=== PATIENT | female | born 1980 ===

== ENCOUNTER 2024-09-22 20:27 | Observation (INO) | payer OTHER ==
--- NOTE | 2024-09-22 20:35 | ED ---
Chest Pain HPI - General Chief Complaint: Chest Pain Stated Complaint: Chest pain,Sob Time Seen by Provider: 09/22/24 20:34 Source: patient, RN notes reviewed, old records reviewed Mode of arrival: ambulatory Limitations: no limitations - History of Present Illness Initial Comments: This is a 44-year-old female to the ER for evaluation of chest pain chest pain shortness of breath patient is having significant retching with nausea and vomiting here in the ER for persistent chest pain left-sided chest pain severe weakness patient feels pale diaphoretic and feverish. MD Complaint: chest pain Onset: during rest, during exertion Pain Location: substernal, left chest Pain Radiation: none Severity: mild Severity scale (1-10): 2 Consistency: constant Improves With: nothing Worsens With: nothing Anginal Symptoms: dyspnea, sense of impending doom Other Symptoms: palpitations Treatments Prior to Arrival: none - Related Data Home Medications Medication Instructions Recorded Confirmed Escitalopram [Lexapro] 10 mg PO HS 09/29/23 09/23/24 Amoxicillin (Unknown Dose) 1 tab PO BID 09/23/24 09/23/24 Previous Rx's Medication Instructions Recorded Pantoprazole [Protonix] 40 mg PO DAILY 30 Days #30 tab 09/24/24 Allergies Allergy/AdvReac Type Severity Reaction Status Date / Time No Known Allergies Allergy Verified 09/23/24 07:58 Review of Systems ROS Statement: Those systems with pertinent positive or pertinent negative responses have been documented in the HPI. ROS Other: All systems not noted in ROS Statement are negative. EKG Findings - EKG Comments: EKG Findings:: EKG sinus 64 VT 135 QRS 106 QTc 469 - EKG Results: EKG: interpreted by ALEX Past Medical History Past Medical History: No Reported History History of Any Multi-Drug Resistant Organisms: None Reported Past Surgical History: Section Additional Past Surgical History / Comment(s): EGD last week Past Anesthesia/Blood Transfusion Reactions: No Reported Reaction Additional Past Anesthesia/Blood Transfusion Reaction / Comment(s): No prior blood transfusion. Past Psychological History: No Psychological Hx Reported Smoking Status: Never smoker Past Alcohol Use History: None Reported Past Drug Use History: Marijuana General Exam Limitations: no limitations General appearance: alert, in no apparent distress Head exam: Present: atraumatic, normocephalic, normal inspection Eye exam: Present: normal appearance, PERRL, EOMI. Absent: scleral icterus, conjunctival injection, periorbital swelling ENT exam: Present: normal exam, mucous membranes moist Neck exam: Present: normal inspection. Absent: tenderness, meningismus, lymphadenopathy Respiratory exam: Present: normal lung sounds bilaterally. Absent: respiratory distress, wheezes, rales, rhonchi, stridor Cardiovascular Exam: Present: regular rate, normal rhythm, normal heart sounds. Absent: systolic murmur, diastolic murmur, rubs, gallop, clicks GI/Abdominal exam: Present: soft, normal bowel sounds. Absent: distended, tenderness, guarding, rebound, rigid Extremities exam: Present: normal inspection, full ROM, normal capillary refill. Absent: tenderness, pedal edema, joint swelling, calf tenderness Back exam: Present: normal inspection Neurological exam: Present: alert, oriented X3, CN II-XII intact Psychiatric exam: Present: normal affect, normal mood Skin exam: Present: warm, dry, intact, normal color. Absent: rash Course Vital Signs 09/22/24 09/22/24 09/23/24 20:28 22:44 00:43 Temperature 97.9 F 97.9 F Pulse Rate 63 75 Pulse Rate [ 63 Right Left Lateral Pulse Oximetery] Respiratory 20 17 Rate Blood Pressure 156/84 141/79 Blood Pressure 142/81 [Right Arm] O2 Sat by Pulse 100 97 97 Oximetry 09/23/24 01:25 Temperature Pulse Rate 75 Pulse Rate [ Right Left Lateral Pulse Oximetery] Respiratory 9 L Rate Blood Pressure 156/88 Blood Pressure [Right Arm] O2 Sat by Pulse 97 Oximetry - Reevaluation(s) Reevaluation #1: 09/22/24 20:35 Medical records reviewed Reevaluation #2: 09/22/24 22:35 Patient's symptoms are mildly improved here in the ER Reevaluation #3: 09/22/24 22:35 Patient informed of results questions answered still with chest pain Reevaluation #4: Was pt. sent in by a medical professional or institution (, PA, PROTOTYPE SEWER, urgent care, hospital, or halfway...) When possible be specific @ -no Did you speak to anyone other than the patient for history (EMS, parent, family, police, friend...)? What history was obtained from this source @ -no Did you review nursing and triage notes (agree or disagree)? Why? @ -agree Are old charts reviewed (outside hosp., previous admission, EMS record, old EKG, old radiological studies, urgent care reports/EKG's, halfway records)? Report findings @ -yes Differential Diagnosis (chest pain, altered mental status, abdominal pain women, abdominal pain men, vaginal bleeding, weakness, fever, dyspnea, syncope, headache, dizziness, GI bleed, back pain, seizure, CVA, palpatations, mental health, musculoskeletal)? @ -prior EKG interpreted by me (3pts min.). @ -yes X-rays interpreted by me (1pt min.). @ -yes negative for acute disease CT interpreted by me (1pt min.). @ -no U/S interpreted by me (1pt. min.). @ -no What testing was considered but not performed or refused? (CT, X-rays, U/S, labs)? Why? @ -none What meds were considered but not given or refused? Why? @ -none Did you discuss the management of the patient with other professionals (professionals i.e. , PA, PROTOTYPE SEWER, lab, RT, psych nurse, home health care social worker, environmental restoration planner, teacher, chief sales officer, case management rn)? Give summary @ -no Was smoking cessation discussed for >3mins.? @ -no Was critical care preformed (if so, how long)? @ -no Were there social determinants of health that impacted care today? How? (Homelessness, low income, unemployed, alcoholism, drug addiction, transportation, low edu. Level, literacy, decrease access to med. care, [facility], rehab)? @ -none Was there de-escalation of care discussed even if they declined (Discuss DNR or withdrawal of care, Hospice)? DNR status @ -no What co-morbidities impacted this encounter? (DM, HTN, Smoking, COPD, CAD, Cancer, CVA, ARF, Chemo, Hep., AIDS, mental health diagnosis, sleep apnea, morbid obesity)? @ -none Was patient admitted / discharged? Hospital course, mention meds given and route, prescriptions, significant lab abnormalities, going to OR and other pertinent info. @ - 44 female with chest pain nausea vomiting diaphoresis and fever symptoms. Patient has no acute cause of symptoms found here in the ER patient admitted for trending of troponin with chest pain, symptomatic therapy with nausea vomiting Admitted Undiagnosed new problem with uncertain prognosis? @ -no Drug Therapy requiring intensive monitoring for toxicity (Heparin, Nitro, Insulin, Cardizem)? @ -no Were any procedures done? @ -no Diagnosis/symptom? @ -Chest pain Acute, or Chronic, or Acute on Chronic? @ -Acute Uncomplicated (without systemic symptoms) or Complicated (systemic symptoms)? @ -Complicated Side effects of treatment? @ -no Exacerbation, Progression, or Severe Exacerbation? @ -exacerbation Poses a threat to life or bodily function? How? (Chest pain, [place], [place], pneumonia, PE, COPD, DKA, ARF, appy, cholecystitis, CVA, Diverticulitis, Homicidal, Suicidal, threat to staff... and all critical care pts) @ -yes with acute chest pain Reevaluation #5: Differential Chest Pain: Stable Angina, Unstable Angina, STEMI, NSTEMI Aortic Dissection, Pneumothorax, Musculoskeletal, Esophageal Spasm GERD, Cholecystitis, Pancreatitis, Zoster, this is not meant to be an all-inclusive list. - Consultations Consultation #1: Spoke with syeda who agrees to admit this patient Chest Pain MDM - MDM 44 female with chest pain nausea vomiting diaphoresis and fever symptoms. Patient has no acute cause of symptoms found here in the ER patient admitted for trending of troponin with chest pain, symptomatic therapy with nausea vomiting Disposition Clinical Impression: Nausea and vomiting, Chest pain, Weakness Disposition: ADMITTED IP TO THIS HOSP Condition: Stable Is patient prescribed a controlled substance at d/c from ED?: No Time of Disposition: 22:30
[2024-09-22 20:53] LABS: Basophils # (A) 0.06 10*3/uL (0.00-0.10); Basophils % (A) 0.3 %; Eosinophils # (A) 0.01 10*3/uL (0.04-0.35); Eosinophils % (A) 0.1 %; HCT 38.6 % (37.2-46.3); HGB 13.3 g/dL (12.0-15.0); Lymphocytes # (A) 1.29 10*3/uL (0.90-5.00); Lymphocytes % (A) 6.7 %; MCH 30.3 pg (27.0-32.0); MCHC 34.5 g/dL (32.0-37.0); MCV 87.9 fL (80.0-97.0); Monocytes # (A) 0.85 10*3/uL (0.20-1.00); Monocytes % (A) 4.4 %; Neutrophils # (A) 16.88 10*3/uL (1.80-7.70); Neutrophils % (A) 88.0 %; Platelet Count 323 10*3/uL (140-440); RBC 4.39 10*6/uL (4.10-5.20); RDW 13.7 % (11.5-14.5); WBC 19.19 10*3/uL (4.50-10.00)
[2024-09-22 21:11] LABS: AST 35 U/L (14-36); African American GFR (CKD) >90 (>60 ml/min/1.73 sqM); Albumin 5.3 g/dL (3.5-5.0); Alkaline Phosphatase 60 U/L (38-126); Anion Gap 19 mmol/L; Blood Urea Nitrogen 12 mg/dL (7-17); Calcium 10.2 mg/dL (8.4-10.2); Carbon Dioxide 17 mmol/L (22-30); Chloride 105 mmol/L (98-107); Glucose 168 mg/dL (74-99); Lipase 31 U/L (23-300); Magnesium 1.8 mg/dL (1.6-2.3); Non-African American GFR(CKD) >90 (>60 ml/min/1.73 sqM); Potassium 4.0 mmol/L (3.5-5.1); Sodium 141 mmol/L (137-145); Total Protein 8.1 g/dL (6.3-8.2)
[2024-09-22 21:15] LABS: INR 1.0 (<1.2); Prothrombin Time 10.7 sec (10.0-12.5)
[2024-09-22 21:18] LABS: NT-Pro-B-Type Natriuretic Pept 135 pg/mL; Partial Thromboplastin Time 18.4 sec (22.0-30.0)
[2024-09-22] MEDS: ONDANSETRON 4 MG/2 ML VIAL IVP STA (21:22)
[2024-09-22] MEDS: LORazepam 1 MG/0.5 ML VIAL IV STA (21:25)
[2024-09-22] MEDS: PANTOPRAZOLE 40 MG/10 ML VIAL IVP STA (21:25)
[2024-09-22] MEDS: MORPHINE SULFATE 4 MG/ML SYRINGE IVP STA (21:27)
[2024-09-22 21:33] LABS: ALT 31 U/L (4-34)
--- NOTE | 2024-09-22 21:44 | XR ---
EXAMINATION TYPE: XR chest 2V DATE OF EXAM: 09/22/2024 9:00 PM COMPARISON: None. CLINICAL INDICATION: Female, 44 years old with history of Chest Pain, TECHNIQUE: XR chest 2V view(s) obtained. FINDINGS: The heart size is normal. The pulmonary vasculature is normal. The lungs are clear. IMPRESSION: 1. No acute pulmonary process. [facility], Workstation: [facility], 09/22/2024 9:41 PM
[2024-09-22 21:52] LABS: VBG HCO3 21.0 mmol/L (24-28); VBG PCO2 28.0 mmHg (37-51); VBG PH 7.49 (7.31-7.41)
[2024-09-22] MEDS: SODIUM CHLORIDE 0.9% 1,000 ML IV SCH (21:56)
[2024-09-22] MEDS ORDERED: KETOROLAC 15 MG/ML 1 ML VIAL IVP PRN (22:34)
[2024-09-22] MEDS ORDERED: NALOXONE 0.4 MG/ML 1 ML VIAL IV PRN (22:34)
[2024-09-22] MEDS: KETOROLAC 15 MG/ML 1 ML VIAL IVP STA (22:56)
[2024-09-22 23:25] LABS: Bilirubin,Urine Negative (Negative); Blood,Urine Small (Negative); Color,Urine Light Yellow; Glucose,Urine (UA) 1+ (Negative); Leukocyte Esterase,Urine Negative (Negative); Mucus,Urine Rare /hpf; Nitrite,Urine Negative (Negative); PH, Urine 8.5 (5.0-8.0); Protein,Urine Trace (Negative); RBC,Urine 56 /hpf (0-5); Specific Gravity,Urine 1.020 (1.001-1.035); Squamous Epithelial Cell,Urine 4 /hpf (0-4); Urobilinogen,Urine <2.0 mg/dL (<2.0); WBC,Urine 4 /hpf (0-5)
[2024-09-22 23:50] LABS: Ketones,Urine 4+ (Negative)
--- NOTE | 2024-09-23 00:44 | P.HPIM ---
History of Present Illness H&P Date: 09/23/24 Patient is a 44-year-old female with a PMH of peptic ulcer status post perforation comes into the ED today for nausea vomiting and substernal chest pain that started today in the afternoon. Patient stated that she went out for lunch and she had tacos, and 1 hour later she noticed the symptoms of her intractable nausea and vomiting, diarrhea, and chest pain. Chest pain described as substernal nonreproducible dull pain. Denied radiation to the jaw, left shoulder, left arm or to the back. Patient stated having multiple nonbloody emesis during the day, and she was unable to tolerate food or drinks. She also stated having 2 bowel movements described as watery nonbloody. Denied sick contact. Her WBC 19.19, troponin is negative. Patient denied headache, fever, shortness of breath, muscle weakness, fever, chills, numbness or tingling. Imaging Chest x-ray 09/22 No cardiopulmonary process Labs WBC 19.19, Hgb 13.3, HCT 38.6, PLT count 323 Na 141, K 4, BUN 12, Cr 0.7 Vitals T97.9, HR 75, RR 17, BP 141/79, O2 sat 97% on RA ED documentation reviewed. Review of systems: Pertinent positives and negatives as discussed in HPI, a complete review of systems was performed and all other systems are negative. Physical examination: Vital signs reviewed General: Fatigue, mild distress, appears at stated age, normal weight Derm: no unusual rashes/lesions, warm Head: atraumatic, normocephalic Eyes: EOMI, anicteric sclera, pupils equal round reactive to light ENT: Nose and ears atraumatic Neck: supple Mouth: no lip lesion, mucus membranes moist Cardiovascular: S1S2 reg, no murmur, positive dorsalis pedis pulse bilateral, no edema Lungs: Normal breathing effort, no rhonchi, no rales, no accessory muscle use Abdominal: soft, nontender to palpation, no guarding Ext: muscle strength 5 out of 5 in all 4 extremities grossly, no gross muscle atrophy Neuro: no gross focal neuro deficits Psych: Alert, oriented to person, place, and time Assessment/Plan: #. Noncardiac acute chest pain - Last echo in 08/2023 with ejection fraction 55-60% - Last stress test in 08/2023 with no evidence of ischemia - Troponin is negative - Pain possibly due to retching and vomiting -consider EGD if no improvement in symptoms - give Protonix 40 mg PRN #. Acute nausea and vomiting possibly due to food poisoning - Keep on IV fluids - Zofran IV as needed for nausea - Keep n.p.o. for now, and advance diet as tolerated #. Leukocytosis - trend DVT prophylaxis: Lovenox 40 mg The patient is admitted with an anticipated less than 2 midnight stay for evaluation of chest pain CODE STATUS: Full code Discussed with: Dr. Young Anticipated discharge place: Home Benedict Nichols MD PGY-1 IM Dictation was produced using [employer] dictation software. please excuse any grammatical, word or spelling errors. I have seen and evaluated the patient today. I Discussed the case with the resident and agree with the resident's findings I edited the assessment and plan as necessary as documented in the resident's note. anion gap metabolic acidosis check urine drug screen blood alcohol level toxicolody screen serum acetone lactic acid continue with supportive care Past Medical History Past Medical History: No Reported History History of Any Multi-Drug Resistant Organisms: None Reported Past Surgical History: Section Additional Past Surgical History / Comment(s): EGD last week Past Anesthesia/Blood Transfusion Reactions: No Reported Reaction Additional Past Anesthesia/Blood Transfusion Reaction / Comment(s): No prior blood transfusion. Past Psychological History: No Psychological Hx Reported Smoking Status: Never smoker Past Alcohol Use History: None Reported Past Drug Use History: Marijuana Medications and Allergies Home Medications Medication Instructions Recorded Confirmed Type Escitalopram [Lexapro] 10 mg PO HS 09/29/23 09/29/23 History Omeprazole 40 mg PO DAILY 09/29/23 09/29/23 History Metoclopramide HCl [Reglan] 10 mg PO ACHS PRN 09/30/23 09/30/23 History Allergies Allergy/AdvReac Type Severity Reaction Status Date / Time No Known Allergies Allergy Verified 09/22/24 20:31 Physical Exam Vitals: Vital Signs Temp Pulse Resp BP Pulse Ox 09/22/24 22:44 75 17 141/79 97 09/22/24 20:28 97.9 F 63 20 156/84 100 Intake and Output 09/22/24 09/22/24 09/23/24 14:59 22:59 06:59 Other: Weight 79.379 kg Results CBC & Chem 7: 09/22/24 20:36 09/22/24 20:36 Labs: Abnormal Lab Results - Last 24 Hours (Table) 09/22/24 09/22/24 09/22/24 Range/Units 20:36 20:36 20:36 WBC 19.19 H (4.50-10.00) 10*3/uL Immature Gran # 0.10 H (0.00-0.04) 10*3/uL Neutrophils # 16.88 H (1.80-7.70) 10*3/uL Eosinophils # 0.01 L (0.04-0.35) 10*3/uL APTT 18.4 L (22.0-30.0) sec VBG pH (7.31-7.41) VBG pCO2 (37-51) mmHg VBG HCO3 (24-28) mmol/L Carbon Dioxide 17 L (22-30) mmol/L Glucose 168 H (74-99) mg/dL Albumin 5.3 H (3.5-5.0) g/dL Urine pH (5.0-8.0) Urine Protein (Negative) Urine Glucose (UA) (Negative) Urine Ketones (Negative) Urine Blood (Negative) Urine RBC (0-5) /hpf Urine Mucus (None) /hpf 09/22/24 09/22/24 Range/Units 21:40 22:31 WBC (4.50-10.00) 10*3/uL Immature Gran # (0.00-0.04) 10*3/uL Neutrophils # (1.80-7.70) 10*3/uL Eosinophils # (0.04-0.35) 10*3/uL APTT (22.0-30.0) sec VBG pH 7.49 H (7.31-7.41) VBG pCO2 28 L (37-51) mmHg VBG HCO3 21 L (24-28) mmol/L Carbon Dioxide (22-30) mmol/L Glucose (74-99) mg/dL Albumin (3.5-5.0) g/dL Urine pH 8.5 H (5.0-8.0) Urine Protein Trace H (Negative) Urine Glucose (UA) 1+ H (Negative) Urine Ketones 4+ H (Negative) Urine Blood Small H (Negative) Urine RBC 56 H (0-5) /hpf Urine Mucus Rare H (None) /hpf
[2024-09-23] MEDS: ONDANSETRON 4 MG/2 ML VIAL IVP PRN (02:03)
[2024-09-23] MEDS: DEXTROSE 5%-0.45% NACL 1,000 ML IV SCH (02:17)
[2024-09-23 03:20] LABS: Basophils # (A) 0.03 10*3/uL (0.00-0.10); Basophils % (A) 0.2 %; Eosinophils # (A) 0.00 10*3/uL (0.04-0.35); Eosinophils % (A) 0.0 %; HCT 36.0 % (37.2-46.3); HGB 12.2 g/dL (12.0-15.0); Lymphocytes # (A) 0.85 10*3/uL (0.90-5.00); Lymphocytes % (A) 5.7 %; MCH 30.3 pg (27.0-32.0); MCHC 33.9 g/dL (32.0-37.0); MCV 89.3 fL (80.0-97.0); Monocytes # (A) 0.34 10*3/uL (0.20-1.00); Monocytes % (A) 2.3 %; Neutrophils # (A) 13.67 10*3/uL (1.80-7.70); Neutrophils % (A) 91.3 %; Platelet Count 277 10*3/uL (140-440); RBC 4.03 10*6/uL (4.10-5.20); RDW 13.9 % (11.5-14.5); WBC 14.96 10*3/uL (4.50-10.00)
[2024-09-23 03:42] LABS: ALT 23 U/L (4-34); AST 27 U/L (14-36); African American GFR (CKD) >90 (>60 ml/min/1.73 sqM); Albumin 4.8 g/dL (3.5-5.0); Alkaline Phosphatase 49 U/L (38-126); Anion Gap 11 mmol/L; Blood Urea Nitrogen 12 mg/dL (7-17); Calcium 9.3 mg/dL (8.4-10.2); Carbon Dioxide 23 mmol/L (22-30); Chloride 106 mmol/L (98-107); Glucose 142 mg/dL (74-99); Magnesium 1.8 mg/dL (1.6-2.3); Non-African American GFR(CKD) >90 (>60 ml/min/1.73 sqM); Potassium 4.0 mmol/L (3.5-5.1); Sodium 140 mmol/L (137-145); Total Protein 7.3 g/dL (6.3-8.2)
[2024-09-23 03:44] LABS: Acetaminophen <10.0 ug/mL; Salicylate <1.0 mg/dL
[2024-09-23] MEDS: MORPHINE SULFATE 4 MG/ML SYRINGE IV PRN (06:41)
[2024-09-23] MEDS: LACTATED RINGERS 1,000 ML IV ONE (10:02)
[2024-09-23] MEDS: PANTOPRAZOLE 40 MG/10 ML VIAL IV SCH (10:03)
[2024-09-23] MEDS: ENOXAPARIN 40 MG/0.4 ML SYRINGE SQ SCH (10:04)
--- NOTE | 2024-09-23 14:57 | P.PN ---
Subjective Progress Note Date: 09/23/24 Hospital course: Patient is a pleasant 44-year-old female with a past medical history of depression, GERD, and history of perforated gastric ulcer. She reports that she is from [place] and currently in [place] visiting with her mom. She reports they went out to lunch yesterday afternoon and had some tacos and shortly after began experiencing intractable nausea, vomiting, chest and epigastric pain. On arrival to our facility, patient underwent evaluation in the emergency department. Vital signs upon arrival show blood pressure 156/84, heart rate 63, respiratory rate 20, temp 97.9 F, and SpO2 100% on room air. Labs completed and reviewed. CBC showing leukocytosis with WBC count of 19.19 with immature granulocytes of 0.10 and neutrophils of 16.88. Coagulation profile showing a low PTT of 18.4. VBG showing metabolic alkalosis with pH 7.49, PCO2 of 28, and bicarb of 21. BMP showing high anion gap metabolic acidosis with chloride of 105, bicarb of 17, and anion gap of 19. Blood glucose was 168. Lactic acid was 2.3. Calcium 10.2. Magnesium 1.8. Liver profile unremarkable. Lipase 31. Troponin was negative at less than 0.012. EKG showing normal sinus rhythm at 64 bpm. Chest x-ray was negative for acute cardiopulmonary process. Patient was admitted under our services to observation. Troponins were trended overnight all negative at less than 0.012. Patient initially reporting improvement of symptoms and p.o. challenge to be performed. Physical exam: Fully evaluated at bedside this morning. She reports feeling better this morning having improvement of chest/epigastric pain and nausea and vomiting. Will perform p.o. challenge. If patient tolerates oral intake with no further episodes of nausea or vomiting will plan for discharge later today. Vital signs reviewed and stable. General: Nontoxic, no distress and appears stated age. Derm: Skin warm and dry, normal coloration for ethnicity. Head: Atraumatic, normocephalic and symmetric. Eyes: EOM's intact, no lid lag, and anicteric sclera Mouth: no lip lesions, mucus membranes moist Cardiovascular: regular rate and rhythm with normal S1S2, no murmur, positive posterior tibial pulses bilaterally, and cap refill < 2 seconds. Lungs: Respirations even, regular, and unlabored on room air. Lungs CTA bila terally, no rhonchi, no rales, no wheezing, and no accessory muscle usage. Abdominal: soft, nontender to palpation, no guarding, no appreciable organomegaly Ext: ROM intact. No gross muscle atrophy, no edema, no contractures Neuro: Speech clear, face symmetrical and CN II-XII grossly intact with no noted focal neuro deficits Psych: Alert and oriented to person, place, time, and situation. Appropriate and pleasant affect. Assessment and Plan of Care: Intractable nausea and vomiting, possibly cyclic vomiting resulting from cannabinoid hyperemesis syndrome vs gastritis vs food poisoning Metabolic alkalosis Lactic acidosis Leukocytosis, likely reactive secondary to above Epigastric/chest pain, noncardiac pain History of perforated gastric ulcer -Continue IV fluid hydration with lactated Ringer's at 125 cc/h. -Perform p.o. challenge if patient able to tolerate oral intake and no further e pisodes of nausea or vomiting will plan for discharge later today. -Continue GI prophylaxis Protonix 40 mg daily. -Zofran 4 mg IVP every 8 hours as needed for nausea or vomiting. -Urine drug screen and urine hCG to be obtained. Depression -Continue Lexapro 10 mg nightly. Data reviewed: Labs reviewed. CBC showing improvement of leukocytosis with WBC count decreasing from 19.19 down to 14.96 this morning. BMP unremarkable. Blood glucose 142. Magnesium 1.8. Repeat lactic acid 1.8. Troponins were trended overnight all negative at less than 0.012 x 3 draws. Vital signs reviewed. Blood pressure 145/82, heart rate 60, respiratory rate 13, temp 98.9 F, and SpO2 of 97% on room air. CODE STATUS: Full code DVT prophylaxis: Lovenox Discussed with: Patient and RN Anticipated discharge date: Pending clinical course, possibly later today pending p.o. challenge. Anticipated discharge place: Home Patient was seen independently by Nurse Pracitioner. This document was prepared using [employer] dictation software. Please allow for errors in mill machinist, while rare they do occur. Nishant Lee NP rendered care for this patient independently, reviewed the findings and plan as documented in the note above and agree with plan. I did not physically speak with or examine the patient on this date. Objective - Vital Signs Vital signs: Vital Signs Temp 98.9 F 09/23/24 07:00 Pulse 60 09/23/24 07:00 Resp 13 09/23/24 07:00 BP 145/82 09/23/24 07:00 Pulse Ox 97 09/23/24 07:00 FiO2 Intake & Output 09/22/24 09/23/24 09/23/24 18:59 06:59 18:59 Weight 79.379 kg - Labs CBC & Chem 7: 09/23/24 03:04 09/23/24 03:04 Labs: Abnormal Lab Results - Last 24 Hours (Table) 09/22/24 09/22/24 09/22/24 Range/Units 20:36 20:36 20:36 WBC 19.19 H (4.50-10.00) 10*3/uL RBC (4.10-5.20) 10*6/uL Hct (37.2-46.3) % Immature Gran # 0.10 H (0.00-0.04) 10*3/uL Neutrophils # 16.88 H (1.80-7.70) 10*3/uL Lymphocytes # (0.90-5.00) 10*3/uL Eosinophils # 0.01 L (0.04-0.35) 10*3/uL APTT 18.4 L (22.0-30.0) sec VBG pH (7.31-7.41) VBG pCO2 (37-51) mmHg VBG HCO3 (24-28) mmol/L Carbon Dioxide 17 L (22-30) mmol/L Glucose 168 H (74-99) mg/dL Plasma Lactic Acid Robin (0.7-2.0) mmol/L Albumin 5.3 H (3.5-5.0) g/dL Urine pH (5.0-8.0) Urine Protein (Negative) Urine Glucose (UA) (Negative) Urine Ketones (Negative) Urine Blood (Negative) Urine RBC (0-5) /hpf Urine Mucus (None) /hpf 09/22/24 09/22/24 09/23/24 Range/Units 21:40 22:31 02:58 WBC (4.50-10.00) 10*3/uL RBC (4.10-5.20) 10*6/uL Hct (37.2-46.3) % Immature Gran # (0.00-0.04) 10*3/uL Neutrophils # (1.80-7.70) 10*3/uL Lymphocytes # (0.90-5.00) 10*3/uL Eosinophils # (0.04-0.35) 10*3/uL APTT (22.0-30.0) sec VBG pH 7.49 H (7.31-7.41) VBG pCO2 28 L (37-51) mmHg VBG HCO3 21 L (24-28) mmol/L Carbon Dioxide (22-30) mmol/L Glucose (74-99) mg/dL Plasma Lactic Acid Robin 2.3 H* (0.7-2.0) mmol/L Albumin (3.5-5.0) g/dL Urine pH 8.5 H (5.0-8.0) Urine Protein Trace H (Negative) Urine Glucose (UA) 1+ H (Negative) Urine Ketones 4+ H (Negative) Urine Blood Small H (Negative) Urine RBC 56 H (0-5) /hpf Urine Mucus Rare H (None) /hpf 09/23/24 09/23/24 Range/Units 03:04 03:04 WBC 14.96 H (4.50-10.00) 10*3/uL RBC 4.03 L (4.10-5.20) 10*6/uL Hct 36.0 L (37.2-46.3) % Immature Gran # 0.07 H (0.00-0.04) 10*3/uL Neutrophils # 13.67 H (1.80-7.70) 10*3/uL Lymphocytes # 0.85 L (0.90-5.00) 10*3/uL Eosinophils # 0.00 L (0.04-0.35) 10*3/uL APTT (22.0-30.0) sec VBG pH (7.31-7.41) VBG pCO2 (37-51) mmHg VBG HCO3 (24-28) mmol/L Carbon Dioxide (22-30) mmol/L Glucose 142 H (74-99) mg/dL Plasma Lactic Acid Robin (0.7-2.0) mmol/L Albumin (3.5-5.0) g/dL Urine pH (5.0-8.0) Urine Protein (Negative) Urine Glucose (UA) (Negative) Urine Ketones (Negative) Urine Blood (Negative) Urine RBC (0-5) /hpf Urine Mucus (None) /hpf
[2024-09-23] MEDS: LACTATED RINGERS 1,000 ML IV SCH (15:06)
[2024-09-23 15:30] LABS: Barbiturate Screen,Urine Not Detected (NotDetected); Benzodiazepines Screen,Urine Detected (NotDetected); Opiate Screen,Urine Detected (NotDetected); Oxycodone Screen, Urine Not Detected (NotDetected); Phencyclidine Screen,Urine Not Detected (NotDetected); Tricyclic Antidepressant,Urine Not Detected (NotDetected); Urn Cannabinoid Scrn Detected (NotDetected)
[2024-09-23] MEDS: TRIMETHOBENZAMIDE 100 MG/ML 2 ML VIAL IM STA (15:48)
--- NOTE | 2024-09-23 16:57 | CT ---
EXAMINATION TYPE: CT abdomen pelvis w con DATE OF EXAM: 09/23/2024 4:23 PM COMPARISON: None. CLINICAL INDICATION: Female, 44 years old with history of intractable n/v chest/epigastric pain, HX OF PERFORATED ULCER, CHEST AND EPIGASTRIC PAIN TECHNIQUE: Axial images were obtained from above the diaphragm to the pubic rami in the axial plane a t 5 mm thick sections. Reconstructed images are reviewed on the computer in the coronal plane. CONTRAST: 100 mL of Isovue 300. Study performed without Oral Contrast DLP: 988.5 mGycm, Automated exposure control for dose reduction was used. FINDINGS: Limited CT sections are obtained the lung bases. The lung bases are clear. CT ABDOMEN: No inflammatory changes adjacent to the stomach or duodenum. Some fluid is present within the structures. No free air is evident. There is air present within the area of inflammatory change in right lower quadrant. Sample image ser ies 301 image 58. Correlate for recent injections. Phlegmon could be considered. Liver: Normal Spleen: Normal Pancreas: Normal Adrenal glands: The adrenal glands are normal. Gallbladder: Normal Kidneys: No masses are evident. No hydronephrosis is present. No cysts are present. Delayed images were obtained through the kidneys, which remain unremarkable. Aorta: Normal Inferior vena cava: Normal. CT PELVIS: Loops of bowel within the abdomen and pelvis are normal. The study is without oral contrast limit ing bowel evaluation. Appendix: Normal as visualized. Urinary bladder: Normal. Genitourinary structures: Uterus is normal. Adnexa are unremarkable. Osseous structures: No suspicious lytic or sclerotic lesions. IMPRESSION: 1. No suspicious changes to suggest perforated ulcer. 2. Inflammatory type change with some air present in the right lower quadrant subcutaneous tissues. C orrelate for recent injection at this site. Phlegmon could be considered. [facility], Workstation: [facility], 09/23/2024 4:55 PM
[2024-09-23] MEDS: ESCITALOPRAM 10 MG TAB PO SCH (20:45)
[2024-09-24 03:02] LABS: HCT 36.4 % (37.2-46.3); HGB 12.2 g/dL (12.0-15.0); MCH 30.0 pg (27.0-32.0); MCHC 33.5 g/dL (32.0-37.0); MCV 89.4 fL (80.0-97.0); Platelet Count 281 10*3/uL (140-440); RBC 4.07 10*6/uL (4.10-5.20); RDW 14.0 % (11.5-14.5); WBC 12.86 10*3/uL (4.50-10.00)
[2024-09-24 03:31] LABS: ALT 26 U/L (4-34); AST 35 U/L (14-36); African American GFR (CKD) >90 (>60 ml/min/1.73 sqM); Albumin 4.2 g/dL (3.5-5.0); Alkaline Phosphatase 44 U/L (38-126); Anion Gap 10 mmol/L; Blood Urea Nitrogen 13 mg/dL (7-17); Calcium 9.2 mg/dL (8.4-10.2); Carbon Dioxide 25 mmol/L (22-30); Chloride 105 mmol/L (98-107); Glucose 91 mg/dL (74-99); Magnesium 2.0 mg/dL (1.6-2.3); Non-African American GFR(CKD) >90 (>60 ml/min/1.73 sqM); Potassium 3.4 mmol/L (3.5-5.1); Sodium 140 mmol/L (137-145); Total Protein 6.7 g/dL (6.3-8.2)
[2024-09-24] MEDS: POTASSIUM CHLORIDE ER 20 MEQ TAB.ER PO STA (10:07)
[2024-09-24] MEDS: ACETAMINOPHEN TAB 325 MG TAB PO PRN (10:24)
--- NOTE | 2024-09-24 10:25 | P.GSCN ---
History of Present Illness Consult date: 09/24/24 History of present illness: CHIEF COMPLAINT: Chest pressure with nausea and vomiting HISTORY OF PRESENT ILLNESS: This is a 44-year-old female who presented to the hospital with complaints of chest pressure with nausea and vomiting that started 3 days ago after eating a taco. She did also have episodes of vomiting. She reports symptoms felt similar when she had her perforated gastric ulcer years ago. Patient reports her last EGD was about a year ago that had shown inflammation. She does report she takes omeprazole 40 mg daily. She denies any heartburn or indigestion. She denies any difficulty swallowing. She had a CT scan abdomen and pelvis that had reported inflammatory changes noted in the right lower quadrant subcutaneous tissue possibly related to recent injection or phlegmon. Patient does have a small bruise in that right lower quadrant. Area is nontender. Surgical service has been consulted for nausea vomiting chest pain and epigastric pain. Patient does report that the chest pressure and nausea have improved. She was able to tolerate clear liquids this morning. PAST MEDICAL HISTORY: See below PAST SURGICAL HISTORY: , tubal ligation and peptic ulcer repair MEDICATIONS: See below ALLERGIES: See below SOCIAL HISTORY: No illicit drug use. REVIEW OF SYSTEMS: CONSTITUTIONAL: Denies fever or chills. HEENT: Denies blurred vision, vision changes, or eye pain. Denies hemoptysis CARDIOVASCULAR: Denies chest pain or pressure. RESPIRATORY: No shortness of breath. GASTROINTESTINAL: See HPI for pertinent findings HEMATOLOGIC: Denies bleeding disorders. GENITOURINARY: Denies any blood in urine or increased urinary frequency. SKIN: Denies pruitis. Denies rash. PHYSICAL EXAM: VITAL SIGNS: Reviewed GENERAL: Well-developed in no acute distress. HEENT: No sclera icterus. Extraocular movements grossly intact. Moist buccal mucosa. Head is atraumatic, normocephalic. No nasal drainage. CHEST: Chest wall nontender ABDOMEN: Soft. Nondistended. Nontender NEUROLOGIC: Alert and oriented. Cranial nerves II through XII grossly intact. LABORATORY DATA: WBC 14.96 down to 12.86 hemoglobin 12.2 platelets 281 Sodium 140 potassium 3.4 creatinine 0.67 LFTs normal Lactic acid 2.3 down to 1.8 Urine drug screen positive for opiates, meth and marijuana Troponins negative x 3 EKG normal sinus rhythm IMAGING: CT scan abdomen pelvis no suspicious changes to suggest perforated ulcer. Inflammatory type change with some air present in the right lower quadrant subcutaneous tissues. Correlate for recent injection at the site. Phlegmon could be considered. ASSESSMENT: 1. Nausea and vomiting with chest pressure 2. 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 Signing provider agrees with the documented findings, assessment, and plan of care. Attestation Patient seen and examined at bedside. Present with chief complaint of chest pressure with nausea and vomiting. Currently, patient states that her symptoms have resolved. She does have history of gastric ulcer for which she is on daily PPI. She states that this does feel quite different. Denies any previous gallbladder issues. LFTs are normal. We will obtain an ultrasound of the abdomen for further evaluation. Continue liquids at this time. Further recommendations based on patient's clinical progress and imaging. Patient states that her symptoms have resolved and she is from [place] and would like to be discharged. She is surgically stable from discharge secondary to her relief in symptoms. Mira Liang DO Past Medical History Past Medical History: No Reported History History of Any Multi-Drug Resistant Organisms: None Reported Past Surgical History: Section Additional Past Surgical History / Comment(s): EGD last week Past Anesthesia/Blood Transfusion Reactions: No Reported Reaction Additional Past Anesthesia/Blood Transfusion Reaction / Comm: No prior blood transfusion. Past Psychological History: No Psychological Hx Reported Smoking Status: Never smoker Past Alcohol Use History: None Reported Past Drug Use History: Marijuana Medications and Allergies Home Medications Medication Instructions Recorded Confirmed Type Escitalopram [Lexapro] 10 mg PO HS 09/29/23 09/23/24 History Amoxicillin (Unknown Dose) 1 tab PO BID 09/23/24 09/23/24 History Pantoprazole [Protonix] 40 mg PO DAILY 30 Days #30 tab 09/24/24 Rx Allergies Allergy/AdvReac Type Severity Reaction Status Date / Time No Known Allergies Allergy Verified 09/23/24 07:58 Surgical - Exam Osteopathic Statement: *. No significant issues noted on an osteopathic structural exam other than those noted in the History and Physical/Consult. Vital Signs Temp Pulse Resp BP Pulse Ox 97.9 F 63 20 156/84 100 09/22/24 20:28 09/22/24 20:28 09/22/24 20:28 09/22/24 20:28 09/22/24 20:28 Results - Labs 09/24/24 02:43 09/24/24 02:43 Abnormal Lab Results - Last 24 Hours (Table) 09/23/24 09/24/24 09/24/24 Range/Units 12:00 02:43 02:43 WBC 12.86 H (4.50-10.00) 10*3/uL RBC 4.07 L (4.10-5.20) 10*6/uL Hct 36.4 L (37.2-46.3) % Potassium 3.4 L (3.5-5.1) mmol/L Urine Opiates Screen Detected H (NotDetected) U Benzodiazepines Scrn Detected H (NotDetected) U Marijuana (THC) Screen Detected H (NotDetected) Diabetes panel 09/24/24 Range/Units 02:43 Sodium 140 (137-145) mmol/L Potassium 3.4 L (3.5-5.1) mmol/L Chloride 105 (98-107) mmol/L Carbon Dioxide 25 (22-30) mmol/L BUN 13 (7-17) mg/dL Creatinine 0.67 (0.52-1.04) mg/dL Glucose 91 (74-99) mg/dL Calcium 9.2 (8.4-10.2) mg/dL AST 35 (14-36) U/L ALT 26 (4-34) U/L Alkaline Phosphatase 44 (38-126) U/L Total Protein 6.7 (6.3-8.2) g/dL Albumin 4.2 (3.5-5.0) g/dL Calcium panel 09/24/24 Range/Units 02:43 Calcium 9.2 (8.4-10.2) mg/dL Albumin 4.2 (3.5-5.0) g/dL Pituitary panel 09/24/24 Range/Units 02:43 Sodium 140 (137-145) mmol/L Potassium 3.4 L (3.5-5.1) mmol/L Chloride 105 (98-107) mmol/L Carbon Dioxide 25 (22-30) mmol/L BUN 13 (7-17) mg/dL Creatinine 0.67 (0.52-1.04) mg/dL Glucose 91 (74-99) mg/dL Calcium 9.2 (8.4-10.2) mg/dL Adrenal panel 09/24/24 Range/Units 02:43 Sodium 140 (137-145) mmol/L Potassium 3.4 L (3.5-5.1) mmol/L Chloride 105 (98-107) mmol/L Carbon Dioxide 25 (22-30) mmol/L BUN 13 (7-17) mg/dL Creatinine 0.67 (0.52-1.04) mg/dL Glucose 91 (74-99) mg/dL Calcium 9.2 (8.4-10.2) mg/dL Total Bilirubin 0.9 (0.2-1.3) mg/dL AST 35 (14-36) U/L ALT 26 (4-34) U/L Alkaline Phosphatase 44 (38-126) U/L Total Protein 6.7 (6.3-8.2) g/dL Albumin 4.2 (3.5-5.0) g/dL
--- NOTE | 2024-09-24 13:25 | P.PN ---
Subjective Progress Note Date: 09/24/24 Hospital course: Patient is a pleasant 44-year-old female with a past medical history of depression, GERD, and history of perforated gastric ulcer. She reports that she is from [place] and currently in [place] visiting with her mom. She reports they went out to lunch yesterday afternoon and had some tacos and shortly after began experiencing intractable nausea, vomiting, chest and epigastric pain. On arrival to our facility, patient underwent evaluation in the emergency department. Vital signs upon arrival show blood pressure 156/84, heart rate 63, respiratory rate 20, temp 97.9 F, and SpO2 100% on room air. Labs completed and reviewed. CBC showing leukocytosis with WBC count of 19.19 with immature granulocytes of 0.10 and neutrophils of 16.88. Coagulation profile showing a low PTT of 18.4. VBG showing metabolic alkalosis with pH 7.49, PCO2 of 28, and bicarb of 21. BMP showing high anion gap metabolic acidosis with chloride of 105, bicarb of 17, and anion gap of 19. Blood glucose was 168. Lactic acid was 2.3. Calcium 10.2. Magnesium 1.8. Liver profile unremarkable. Lipase 31. Troponin was negative at less than 0.012. EKG showing normal sinus rhythm at 64 bpm. Chest x-ray was negative for acute cardiopulmonary process. Patient was admitted under our services to observation. Troponins were trended all negative at less than 0.012. Physical exam: Patient was seen and fully evaluated at bedside this morning. She reports againg feeling better this morning with resolution of chest/epigastric pain and nausea/vomiting. General sx evaluated and recommended gallbladder US to be completed. Discussed with patient whom stated she was cleared by diet and and to be n.p.o. pending completion of gallbladder ultrasound, if ultrasound negative will advance diet and monitor in how patient tolerates advancement of diet. Vital signs reviewed and stable. General: Nontoxic, no distress and appears stated age. Derm: Skin warm and dry, normal coloration for ethnicity. Head: Atraumatic, normocephalic and symmetric. Eyes: EOM's intact, no lid lag, and anicteric sclera Mouth: no lip lesions, mucus membranes moist Cardiovascular: regular rate and rhythm with normal S1S2, no murmur, positive posterior tibial pulses bilaterally, and cap refill < 2 seconds. Lungs: Respirations even, regular, and unlabored on room air. Lungs CTA bilaterally, no rhonchi, no rales, no wheezing, and no accessory muscle usage. Abdominal: soft, nontender to palpation, no guarding, no appreciable organomegaly Ext: ROM intact. No gross muscle atrophy, no edema, no contractures Neuro: Speech clear, face symmetrical and CN II-XII grossly intact with no noted focal neuro deficits Psych: Alert and oriented to person, place, time, and situation. Appropriate and pleasant affect. Assessment and Plan of Care: Intractable nausea and vomiting, possibly cyclic vomiting resulting from cannabinoid hyperemesis syndrome vs gastritis vs food poisoning Metabolic alkalosis Lactic acidosis Leukocytosis, likely reactive secondary to above Epigastric/chest pain, noncardiac pain History of perforated gastric ulcer -Continue IV fluid hydration with lactated Ringer's at 125 cc/h. -Perform p.o. challenge if patient able to tolerate oral intake and no further episodes of nausea or vomiting will plan for discharge later today. -Continue GI prophylaxis Protonix 40 mg daily. -Zofran 4 mg IVP every 8 hours as needed for nausea or vomiting. -Urine drug screen and urine hCG to be obtained. Depression -Continue Lexapro 10 mg nightly. Data reviewed: Labs reviewed. CBC showing continued improvement of leukocytosis with WBC count decreasing from initial 19.19 down to 12.86 this morning. BMP showing mild hypokalemia with potassium of 3.4. Blood glucose 91. Liver profile unremarkable. Vital signs reviewed. Blood pressure 134/84, heart rate 58, respiratory rate 18, temp 98.9 F, and SpO2 of 96% on room air. CODE STATUS: Full code DVT prophylaxis: Lovenox Discussed with: Patient, general surgery PA and RN Anticipated discharge date: Pending clinical course, possibly later today pending ultrasound results followed by p.o. challenge. Anticipated discharge place: Home Patient was seen independently by Nurse Pracitioner. This document was prepared using [employer] dictation software. Please allow for errors in np, while rare they do occur. Nishant Lee NP rendered care for this patient independently, reviewed the findings and plan as documented in the note above and agree with plan. I did not physically speak with or examine the patient on this date. Objective - Vital Signs Vital signs: Vital Signs Temp 98.9 F 09/24/24 07:00 Pulse 58 L 09/24/24 07:00 Resp 18 09/24/24 07:00 BP 134/84 09/24/24 07:00 Pulse Ox 96 09/24/24 07:00 FiO2 Intake & Output 09/23/24 09/24/24 09/24/24 18:59 06:59 18:59 Other: Voiding Method Toilet # Voids 2 2 - Labs CBC & Chem 7: 09/24/24 02:43 09/24/24 02:43 Labs: Abnormal Lab Results - Last 24 Hours (Table) 09/23/24 09/24/24 09/24/24 Range/Units 12:00 02:43 02:43 WBC 12.86 H (4.50-10.00) 10*3/uL RBC 4.07 L (4.10-5.20) 10*6/uL Hct 36.4 L (37.2-46.3) % Potassium 3.4 L (3.5-5.1) mmol/L Urine Opiates Screen Detected H (NotDetected) U Benzodiazepines Scrn Detected H (NotDetected) U Marijuana (THC) Screen Detected H (NotDetected)
[2024-09-24 14:51] VITALS: BP 120/66; PULSE 56; RESP 17; TEMP 99.5
--- NOTE | 2024-09-24 15:03 | US ---
EXAMINATION TYPE: US gallbladder DATE OF EXAM: 09/24/2024 COMPARISON: 09/23/2024 CT CLINICAL INDICATION: Female, 44 years old with history of nausea, abdominal pain; Chest pain with mao sea and vomiting, patient denies any other signs, symptoms, or relevant history TECHNIQUE: Grayscale and color Doppler imaging of the right upper quadrant was performed. FINDINGS: EXAM MEASUREMENTS: Liver Length: 13.0 cm Gallbladder Wall: 0.2 cm CBD: 0.6 cm Right Kidney: 10.5 x 5.0 x 5.6 cm MOLDER FLOOR NOTES: Pancreas: wnl Liver: wnl Gallbladder: wnl Evidence for sonographic Johnson's sign: No CBD: wnl Right Kidney: wnl IMPRESSION: No acute ultrasound abnormality right upper quadrant of the abdomen [facility], , 09/24/2024 3:00 PM
--- NOTE | 2024-09-24 16:19 | P.DS ---
Providers Date of admission: 09/22/24 22:35 Expected date of discharge: 09/24/24 Attending physician: Irene Young MD Consults: 09/23/24 14:30 Consult Physician Urgent Consulting Provider: Austen Madsen Consult Reason/Comments: intractable n/v and chest/epigastric pain hx of perforated ulcer Do you want consulting provider notified?: Yes Primary care physician: Stated None Hospital Course: Discharge Diagnosis: Intractable nausea and vomiting, possibly cyclic vomiting resulting from cannabinoid hyperemesis syndrome vs gastritis vs food poisoning Metabolic alkalosis, resolved with IV fluid hydration Lactic acidosis, resolved with IV fluid hydration Leukocytosis, likely reactive secondary to above and improved from initial 19.19 down to 12.86. Epigastric/chest pain, noncardiac pain Depression. Continue Lexapro 10 mg nightly. Hospital Course: Patient is a pleasant 44-year-old female with a past medical history of depression, GERD, and history of perforated gastric ulcer. She reports that she is from [place] and currently in [place] visiting with her mom. She reports they went out to lunch yesterday afternoon and had some tacos and shortly after began experiencing intractable nausea, vomiting, chest and epigastric pain. On arrival to our facility, patient underwent evaluation in the emergency department. Vital signs upon arrival show blood pressure 156/84, heart rate 63, respiratory rate 20, temp 97.9 F, and SpO2 100% on room air. Labs completed and reviewed. CBC showing leukocytosis with WBC count of 19.19 with immature granulocytes of 0.10 and neutrophils of 16.88. Coagulation profile showing a low PTT of 18.4. VBG showing metabolic alkalosis with pH 7.49, PCO2 of 28, and bicarb of 21. BMP showing high anion gap metabolic acidosis with chloride of 105, bicarb of 17, and anion gap of 19. Blood glucose was 168. Lactic acid was 2.3. Calcium 10.2. Magnesium 1.8. Liver profile unremarkable. Lipase 31. Troponin was negative at less than 0.012. EKG showing normal sinus rhythm at 64 bpm. Chest x-ray was negative for acute cardiopulmonary process. Patient was admitted under our services to observation. Troponins were trended all negative at less than 0.012. Urine drug screen positive for opioids, benzodiazepines, and marijuana. Urine hCG negative. Patient was evaluated by general surgery team and gallbladder ultrasound was recommended. Gallbladder ultrasound negative for acute process. Patient had full resolution of reported epigastric/chest pain. Nausea and vomiting subsided and patient tolerating oral intake. She was cleared from general surgery perspective for discharge and is medically optimized for discharge at this time. 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 Patient discharged on Protonix 40 mg daily. Physical exam: Vital signs reviewed and stable. General: Nontoxic, no distress and appears stated age. Derm: Skin warm and dry, normal coloration for ethnicity. Head: Atraumatic, normocephalic and symmetric. Eyes: EOM's intact, no lid lag, and anicteric sclera Mouth: no lip lesions, mucus membranes moist Cardiovascular: regular rate and rhythm with normal S1S2, no murmur, positive posterior tibial pulses bilaterally, and cap refill < 2 seconds. Lungs: Respirations even, regular, and unlabored on room air. Lungs CTA bilaterally, no rhonchi, no rales, no wheezing, and no accessory muscle usage. Abdominal: soft, nontender to palpation, no guarding, no appreciable organomegaly Ext: ROM intact. No gross muscle atrophy, no edema, no contractures Neuro: Speech clear, face symmetrical and CN II-XII grossly intact with no noted focal neuro deficits Psych: Alert and oriented to person, place, time, and situation. Appropriate and pleasant affect. A total of 31 minutes of time were spent preparing this complex discharge summary. Pt was discharged on 09/24/2024 at 4:17 PM. Patient was seen independently by Nurse Practitioner. This document was prepared using [employer] dictation software. Please allow for errors in emergency medical dispatcher while rare they do occur. Nishant Lee NP rendered care for this patient independently, reviewed the findings and plan as documented in the note above. I did not physically speak with or examine the patient on this date. Patient Condition at Discharge: Stable Plan - Discharge Summary New Discharge Prescriptions: New Pantoprazole [Protonix] 40 mg PO DAILY 30 Days #30 tab Continue Escitalopram [Lexapro] 10 mg PO HS Amoxicillin (Unknown Dose) 1 tab PO BID Discharge Medication List Escitalopram [Lexapro] 10 mg PO HS 09/29/23 [History] Amoxicillin (Unknown Dose) 1 tab PO BID 09/23/24 [History] Pantoprazole [Protonix] 40 mg PO DAILY 30 Days #30 tab 09/24/24 [Rx] Follow up Appointment(s)/Referral(s): None,Stated [Primary Care Provider] - 1-2 days Patient Instructions/Handouts: Cyclic Vomiting Syndrome (DC) Discharge Disposition: HOME SELF-CARE
== END 2024-09-24 16:36 | disposition home or self-care (01) ==
LOC: EC 20:27 → 1SOBS 22:35
PROVIDERS: ADMIT Internal Medicine; ATTEND Internal Medicine
DX: R11.2 Nausea with vomiting, unspecified (principal); R53.1 Weakness; R07.2 Precordial pain; R10.13 Epigastric pain; D72.829 Elevated white blood cell count, unspecified; E87.4 Mixed disorder of acid-base balance; K21.9 Gastro-esophageal reflux disease without esophagitis; F32.A Depression, unspecified; Z87.11 Personal history of peptic ulcer disease; Z79.899 Other long term (current) drug therapy
CPT/HCPCS: 36415; 71046; 74177; 76705; 80053; 80143; 80179; 80306; 80320; 81001; 81025; 82009; 82803; 83605; 83690; 83735; 83880; 84100; 84484; 85025; 85027; 85610; 85730; 93005; 96372; 96374; 96375; 96376; 99285